=== PATIENT | male | born 1955 | race Caucasian/White ===

== ENCOUNTER → 2019-01-25 | Outpatient (CLI) | payer MEDICARE, BC | LOC: LAB SHORT 11:00 → LAB 11:00 | DX: J44.9 Chronic obstructive pulmonary disease, unspecified (principal) | CPT/HCPCS: 87070; 87205 ==

== ENCOUNTER 2019-06-18 05:09 | Inpatient (IN) | payer MEDICARE, BC ==
[~2019-06-18] VITALS: Ht 185.4 cm; Wt 108.9 kg
[2019-06-18] MEDS ORDERED: Duoneb 2.5-0.5 M3 ML NEB (05:23)
[2019-06-18] MEDS ORDERED: OMEP20ER PO (05:24)
[2019-06-18] MEDS ORDERED: Budesonide0.5 MG/2 M INH (05:24)
[2019-06-18] MEDS ORDERED: COMBIVENT RESPIM4 GM INH (05:24)
[2019-06-18] MEDS ORDERED: CENTRUM SILVER1 EAC2 PO (05:25)
[2019-06-18] MEDS ORDERED: Elemental Calc600 MG PO (05:28)
[2019-06-18] MEDS ORDERED: MAGNESIUM GLU27.5 M1 PO (05:29)
[2019-06-18] MEDS ORDERED: VITAMIN D32000 UNI3 PO (05:30)
[2019-06-18] MEDS ORDERED: B Complex-Foli1 EACH PO (05:31)
[2019-06-18 05:50] LABS: BASOPHILS ABSOLUTE AUTO 0.02 K/mm3 (0.00-0.23); BASOPHILS PERCENT AUTO 0 % (0-2); EOSINOPHILS ABSOLUTE AUTO 0.07 K/mm3 (0.00-0.68); EOSINOPHILS PERCENT AUTO 1 % (0-6); Hematocrit 36.9 % (37.0-53.0); Hemoglobin 9.8 g/dL (13.5-17.5); IMMATURE GRAN ABSOLUTE AUTO 0.02 K/mm3 (0.00-0.10); IMMATURE GRAN PERCENT AUTO 0 % (0-1); LYMPHOCYTES ABSOLUTE AUTO 0.98 K/mm3 (0.84-5.20); LYMPHOCYTES PERCENT AUTO 11 % (21-46); MONOCYTES ABSOLUTE AUTO 0.76 K/mm3 (0.16-1.47); MONOCYTES PERCENT AUTO 9 % (4-13); Mean Corpuscular HGB 15.7 pg (26.0-34.0); Mean Corpuscular HGB Conc 26.6 g/dL (31.5-36.5); Mean Corpuscular Volume 59 fL (80-100); Mean Platelet Volume 9.1 fL (9.1-12.4); NEUTROPHILS ABSOLUTE AUTO 6.93 K/mm3 (1.96-9.15); NEUTROPHILS PERCENT AUTO 79 % (41-73); Platelet Count 522 K/mm3 (150-400); RDW Coefficient Variation 21.6 % (11.7-14.2); RDW Standard Deviation 42.4 fL (35.1-46.3); Red Blood Cell Count 6.25 M/mm3 (4.30-5.90); White Blood Cell Count 8.78 K/mm3 (4.00-11.30)
[2019-06-18 06:13] LABS: Alanine Aminotransfer (ALT/SGP 18 U/L (12-78); Albumin, Blood 3.9 g/dL (3.4-5.0); Albumin/Globulin Ratio 1.2 (0.8-1.8); Alk Phos 82 U/L (50-136); Anion Gap 7 mmol/L (6-16); Aspartate Aminotrans (AST/SGOT 16 U/L (12-37); Bilirubin, Total 0.5 mg/dL (0.1-1.0); Blood Urea Nitrogen 14 mg/dL (8-24); Bun/Creatinine Ratio 18.2 (12.0-20.0); CO2, Blood 26 mmol/L (21-32); Calcium, Blood 9.3 mg/dL (8.5-10.1); Chloride, Blood 102 mmol/L (98-108); Creatinine, Blood 0.77 mg/dL (0.60-1.20); Globulin, Blood 3.3 g/dL (2.2-4.0); Glomerular Filtration Rate >60 (60-); Glucose, Blood 103 mg/dL (70-99); Potassium, Blood 3.8 mmol/L (3.5-5.5); Sodium, Blood 135 mmol/L (136-145); Total Protein, Blood 7.2 g/dL (6.4-8.2); Troponin I <0.015 ng/mL (0.000-0.040)
--- NOTE | 2019-06-18 10:56 | NUR ---
DR JAY IN TO SEE PT.
--- NOTE | 2019-06-18 11:29 | NUR ---
PT TO OR
--- NOTE | 2019-06-18 12:55 | NUR ---
06/18/19 1255 Jose R Ferreira MAN CATH PLACED PER YELENA DAVIES
--- NOTE | 2019-06-18 14:55 | NUR ---
turned over care to willy bo
--- NOTE | 2019-06-18 15:53 | NUR ---
PT ARRIVED BACK TO THE ROOM AT APPROXIMATELY 1530. PT IS ALERT AND ORIENTED. HE DENIES PAIN AND NAUSEA. HE DOES REPORT SOME DIFFICULTY TAKING A DEEP BREATH. RR IS EVEN AND UNLABORED O2 SATURATION IS >98%. LUNG SOUNDS CLEAR BUT DIM IN THE BASES. EPIDURAL WAS STOPPED AND DR. SCHWARTZ NOTIFIED OF DIFFICULTY BREATHING AND LACK OF SENSATION FROM NIPPLE LINE TO HIS FEET. DR. SCHWARTZ REPORTED HE EXPECTED THIS R/T EPIDURAL PLACEMENT AND ALSO STATED THAT PT HAD A BOLUS OF MEDICATION BEFORE LEAVING THE OR. DR. SCHWARTZ REQUESTED THAT EPIDURAL BE TURNED OFF AT THIS TIME, UNTIL DIFFICULTY BREATHING SUBSIDES. EPIDURAL SITE LOOKS GOOD, DRESSING IS IN PLACE. PT DENIES PAIN AND REPORTS FEELING WELL AFTER SURGERY. BOWEL SOUNDS ARE HYPO ACTIVE. PT MOVES UPPER EXTREMITIES WELL. PT IS UNALBE TO MOVE BLE AT THIS TIME. WILL CONTINUE TO MONITOR.
--- NOTE | 2019-06-18 16:58 | NUR ---
PT IS TREMULOUS AT THIS TIME. HE APPEARS ANXIOUS. PT WAS EDUCATED THAT SOMETIMES ANESTHESIA CAN RESULT IN SHAKING. PT WAS PROVIDED WITH A WARM BLANKET. LIGHTS DIMMED. EDUCATED TO USE CLEANSING BREATHS. MUSIC CHANNEL TURNED ON. PT EDUCATED TO FOCUS ON RELAXING THOUGHTS AND REASSURED THAT HE IS DOING WELL. VSS. WILL CONTINUE TO MONITOR.
--- NOTE | 2019-06-18 17:01 | NUR ---
BREATHING PT REPORTS THAT HIS BREATHING HAS IMPROVED AFTER HAVING A BREATHING TREATMENT. HE ALSO REPORTS HAVING INCREASED DISCOMFORT IN HIS ABD. EPIDURAL WAS STARTED AT THIS TIME SINCE PT IS HAVING DISCOMFORT AND BREATHING HAS IMPROVED.
--- NOTE | 2019-06-18 18:20 | NUR ---
SHIFT SUMMARY PT HAD A GHISLAINE-COLECTOMY WITH DR. GARZA TODAY. HE IS DOING WELL POST-OP. VSS. EPIDURAL SITE IS C/D/I. PT'S SENSATION IS DECREASED FROM T7 TO HIS FEET. HE IS ABLE TO SLIGHTLY MOVE HIS FEET AT THIS TIME. DR. SCHWARTZ IS AWARE OF PT'S LEVEL OF DECREASED SENSATION. PT IS TOLERATING ICE CHIPS AT THIS TIME. VSS. WILL MONITOR UNTIL REPORT TO ONCOMING RN.
--- NOTE | 2019-06-18 20:00 | NUR ---
WITH EPIDURAL CHECKS NOTED PT WITH DECREASED SENSATION BEGINNING DIRECTLY BELOW NIPPLE LINE ENTIRE ABD EXTENDING DOWN LEGS TO FEET.PT ABLE TO LOO. CIRC CKS INTACT.
--- NOTE | 2019-06-18 21:00 | NUR ---
PT REPORTS IMPROVEMENT IN SENSATION TO LEGS. CONT DECREASED, BUT LESS. PT ABLE TO REPOSTIION SELF FOR SITE CKS.
--- NOTE | 2019-06-19 00:56 | NUR ---
PT WITH DECREASED SENSATION APPROX 2 INCHES BELOW NIPPLE LINE. CONTINUES TO MID THIGH THEN STARTS INCREASING SENSATION TO CLOSE NORMAL FURTHER DOWN LEGS TO FEET.DORSI AND PLANTAR FLEX WITHOUT DIFF. MAED. REPOSITIONS SELF IN BED. MAN DRAINING DK DIMAS. MED WITH ZOFRAN FOR C/O MILD NAUSEA. HAS HAD LOOSE SOFT BM TONIGHT.
--- NOTE | 2019-06-19 03:24 | NUR ---
EPIDURAL CHECKS ARE UNCHANGED.
[2019-06-19 03:37] LABS: BASOPHILS ABSOLUTE AUTO 0.02 K/mm3 (0.00-0.23); BASOPHILS PERCENT AUTO 0 % (0-2); EOSINOPHILS PERCENT AUTO 0 % (0-6); Hematocrit 28.4 % (37.0-53.0); Hemoglobin 7.8 g/dL (13.5-17.5); IMMATURE GRAN ABSOLUTE AUTO 0.07 K/mm3 (0.00-0.10); IMMATURE GRAN PERCENT AUTO 0 % (0-1); LYMPHOCYTES ABSOLUTE AUTO 0.64 K/mm3 (0.84-5.20); LYMPHOCYTES PERCENT AUTO 4 % (21-46); MONOCYTES ABSOLUTE AUTO 0.53 K/mm3 (0.16-1.47); MONOCYTES PERCENT AUTO 3 % (4-13); Mean Corpuscular HGB 16.2 pg (26.0-34.0); Mean Corpuscular HGB Conc 27.5 g/dL (31.5-36.5); Mean Corpuscular Volume 59 fL (80-100); Mean Platelet Volume 8.8 fL (9.1-12.4); NEUTROPHILS ABSOLUTE AUTO 15.87 K/mm3 (1.96-9.15); NEUTROPHILS PERCENT AUTO 93 % (41-73); Platelet Count 383 K/mm3 (150-400); RDW Coefficient Variation 21.2 % (11.7-14.2); RDW Standard Deviation 42.9 fL (35.1-46.3); Red Blood Cell Count 4.81 M/mm3 (4.30-5.90); White Blood Cell Count 17.13 K/mm3 (4.00-11.30)
[2019-06-19 03:59] LABS: Anion Gap 6 mmol/L (6-16); Blood Urea Nitrogen 11 mg/dL (8-24); Bun/Creatinine Ratio 13.1 (12.0-20.0); CO2, Blood 24 mmol/L (21-32); Chloride, Blood 107 mmol/L (98-108); Creatinine, Blood 0.84 mg/dL (0.60-1.20); Glomerular Filtration Rate >60 (60-); Glucose, Blood 113 mg/dL (70-99); Potassium, Blood 3.4 mmol/L (3.5-5.5); Sodium, Blood 137 mmol/L (136-145)
--- NOTE | 2019-06-19 04:59 | NUR ---
SUMMARY PT WITH NO ACUTE CHANGES.MED X 1 FOR NAUSEA.TOLERATING SIPS CLR LIQ.VERB ADEQUATE PAIN CONTROL WITH EPIDURAL.REPOSITIONING SELF FOR COMFORT AND FOR EPIDURAL CHECKS.
--- NOTE | 2019-06-19 18:05 | NUR ---
SUMMARY: PT IS POD1 R COLECTOMY. VSS, A/O. SURGICAL SITE WNL. PT RATES PAIN 1-2/10 WITH EPIDURAL, EPIDURAL CHECKS HAVE BEEN UNCHANGING AND WNL. CHECKS ARE NOW Q4 HR SINCE 1400. PT HAD 2 BMS, ABLE TO AMBULATE TO COMMODE AND SIT UP IN CHAIR. SENSATION IS ABOUT 2 INCHES BELOW NIPPLE LINE TO MID-THIGH, PT MOVING LEGS WELL. ADVANCED TO FULL LIQ DIET AND ABLE TO TOLERATE. NO SAFETY CONCERNS AT THIS TIME. WILL PASS REPORT TO NOC RN
[2019-06-20 03:27] LABS: BASOPHILS ABSOLUTE AUTO 0.03 K/mm3 (0.00-0.23); BASOPHILS PERCENT AUTO 0 % (0-2); EOSINOPHILS ABSOLUTE AUTO 0.29 K/mm3 (0.00-0.68); EOSINOPHILS PERCENT AUTO 3 % (0-6); Hematocrit 26.5 % (37.0-53.0); Hemoglobin 7.2 g/dL (13.5-17.5); IMMATURE GRAN ABSOLUTE AUTO 0.03 K/mm3 (0.00-0.10); IMMATURE GRAN PERCENT AUTO 0 % (0-1); LYMPHOCYTES ABSOLUTE AUTO 0.84 K/mm3 (0.84-5.20); LYMPHOCYTES PERCENT AUTO 8 % (21-46); MONOCYTES ABSOLUTE AUTO 0.43 K/mm3 (0.16-1.47); MONOCYTES PERCENT AUTO 4 % (4-13); Mean Corpuscular HGB 16.1 pg (26.0-34.0); Mean Corpuscular HGB Conc 27.2 g/dL (31.5-36.5); Mean Corpuscular Volume 59 fL (80-100); Mean Platelet Volume 8.7 fL (9.1-12.4); NEUTROPHILS ABSOLUTE AUTO 8.71 K/mm3 (1.96-9.15); NEUTROPHILS PERCENT AUTO 84 % (41-73); Platelet Count 345 K/mm3 (150-400); RDW Coefficient Variation 21.2 % (11.7-14.2); RDW Standard Deviation 43.9 fL (35.1-46.3); Red Blood Cell Count 4.47 M/mm3 (4.30-5.90); White Blood Cell Count 10.33 K/mm3 (4.00-11.30)
[2019-06-20 03:43] LABS: Anion Gap 7 mmol/L (6-16); Blood Urea Nitrogen 8 mg/dL (8-24); Bun/Creatinine Ratio 11.3 (12.0-20.0); CO2, Blood 24 mmol/L (21-32); Calcium, Blood 7.9 mg/dL (8.5-10.1); Chloride, Blood 109 mmol/L (98-108); Creatinine, Blood 0.71 mg/dL (0.60-1.20); Glomerular Filtration Rate >60 (60-); Glucose, Blood 97 mg/dL (70-99); Magnesium, Blood 1.8 mg/dL (1.6-2.4); Phosphorus, Blood 2.4 mg/dL (2.5-4.9); Potassium, Blood 3.6 mmol/L (3.5-5.5); Sodium, Blood 140 mmol/L (136-145)
--- NOTE | 2019-06-20 08:13 | NUR ---
SUMMARY PT WITH MINIMAL C/O DISCOMFORT TONIGHT. TOLERATING PO FLUIDS. URINE GETTING KITCHEN RUNNER IN COLOR PER MAN.REPOSTIIONING SELF.
--- NOTE | 2019-06-20 09:04 | NUR ---
DISCUSSED PT'S STATUS WITH DR JAY INCLUDING I/O AND LABWORK. REPORTS IVF TO TKO AND TO GIVE LOVENOX TODAY AND THEN D/C.
--- NOTE | 2019-06-20 17:51 | NUR ---
SHIFT SUMMARY PT EATING AND DRINKING, HAD BM TODAY. PT HAS EPIDURAL IN PLACE, MAN IN PLACE. PT BEEN ASSISTED WITH ADL'S PRN. PT BEEN UP IN ROOM WITH SBA. PT BEEN UP TO CHAIR.
--- NOTE | 2019-06-21 06:22 | NUR ---
SHIFT SUMMARY AOX4. VSS. DENIES N/V. REPORTS MILD PAIN 1-2/10 IN ABD, HAS EPIDURAL IN LOWER SPINE/BACK, PLANNED TO BE REMOVED TODAY. REPORTS MILD DYSPNEA, STATES WORSE W/ACTIVITY & HE'S ALWAYS HAD PROBLEMS W/HIS BREATHING. E/U RESPIRATIONS, SPO2 >90% ON RA. LESLEY WOUND VAC DRESSING LOCATED MID ABD, SCANT AMOUNT DRY SANGUINEOUS DRAINAGE ON BANDAGE OTHERWISE C/D/I. MAN IS PATENT & DRAINING CLEAR YELLOW URINE, PT HAD 2 BM THIS SHIFT. TOLERATING FULL LIQUID DIET. CALL LIGHT IN REACH.
--- NOTE | 2019-06-21 09:16 | NUR ---
EPIDURAL STOPPED AT THIS TIME PER ANESTHESIA ORDERS.
[2019-06-21] MEDS ORDERED: HYDR1TAB94 PO (10:35)
--- NOTE | 2019-06-21 13:55 | NUR ---
EPIDURAL CATHETER REMOVED BY CELESTE HOPSON FBP. CATHETER TIP INTACT. NO BLEEDING NOTED AT INSERTION SITE. PT TOLERATED WELL.
--- NOTE | 2019-06-21 14:46 | NUR ---
DISCHARGE PT EDUCATED ON AND RECEIVED PRINTED DC INSTRUCTIONS AND VERBALIZED AN UNDERSTANDING. PT REPORTS PAIN MANAGED WITH 1 NORCO. NORCO HARD RX GIVEN TO PT. PT INDEP IN ROOM, SHOWERED, AND SOFIYA REG DIET. VOIDING SPONTANEOUSLY POST MAN REMOVAL. IV DC'D. ADHESIVE SURGICAL DRESSING PLACED OVER KUNAL. PT GATHERED ALL PERSONAL BELONGINGS AND PT ESCORTED OUT VIA W/C. TO PICK PT UP AND TAKE HOME.
== END 2019-06-21 15:04 | disposition home or self-care (01) | DRG 330 ==
LOC: ER 05:09 → SURS 07:16
PROVIDERS: Emergency Medicine; ADMIT Surgery
PROC: 0DTF0ZZ Resection of Right Large Intestine, Open Approach (ICD-10-PCS; principal; 2019-06-18 10:00)
DX: C18.0 Malignant neoplasm of cecum (principal); C77.2 Secondary and unspecified malignant neoplasm of intra-abdominal lymph nodes; R18.8 Other ascites; J44.9 Chronic obstructive pulmonary disease, unspecified; K21.9 Gastro-esophageal reflux disease without esophagitis
CPT/HCPCS: 36415; 74177; 80048; 80053; 83690; 83735; 84100; 84484; 85025; 88309; 93005; 93010; 94640; 94762; 96361; 96365-59; 99285-25; A9270-GY; J1100; J1650; J1885; J2250; J2405; J2543; J2704; J3010; J3480; J7030; J7120; Q9967

== ENCOUNTER 2019-07-15 07:55 | Day surgery (SDC) | payer MEDICARE, BC ==
[~2019-07-15] VITALS: Ht 188 cm; Wt 103.9 kg
[~2019-07-15 07:55] MED LIST: B Complex-Foli1 EACH PO; Budesonide0.5 MG/2 M INH; CENTRUM SILVER1 EAC2 PO; COMBIVENT RESPIM4 GM INH; Duoneb 2.5-0.5 M3 ML NEB; Elemental Calc600 MG PO; HYDR1TAB94 PO; MAGNESIUM GLU27.5 M1 PO; OMEP20ER PO; VITAMIN D32000 UNI3 PO
--- NOTE | 2019-07-15 08:33 | NUR ---
PT ADMITTED TO [facility]. AGREES WITH PLANNED SURGERY. LUNG SOUNDS CLEAR.
--- NOTE | 2019-07-15 08:41 | NUR ---
LUNG SOUNDS CLEAR.
--- NOTE | 2019-07-15 08:50 | NUR ---
REPORT TO CHLOE HARVEY RN.
--- NOTE | 2019-07-15 11:22 | NUR ---
Patient up to Ambulate independently. Gait steady. Discharge instructions reviewed with patient. Patient verbalizes understanding. Copy given to patient to take home. Patient States Post-Procedure ride home has been arranged. Discharged via wheelchair to private car for ride home.
== END 2019-07-15 22:38 | disposition home or self-care (01) ==
LOC: ORSCMMR 07:55 → ORD 09:15 → ORSCMMR 09:15
PROVIDERS: Surgery
PROC: B5161ZA Fluoroscopy of Right Subclavian Vein using Low Osmolar Contrast, Guidance (ICD-10-PCS; principal; 2019-07-15 08:45)
PROC: 05H533Z Insertion of Infusion Device into Right Subclavian Vein, Percutaneous Approach (ICD-10-PCS; principal; 2019-07-15 08:45)
DX: C18.0 Malignant neoplasm of cecum (principal); J44.9 Chronic obstructive pulmonary disease, unspecified; K21.9 Gastro-esophageal reflux disease without esophagitis; Z79.899 Other long term (current) drug therapy
CPT/HCPCS: 77001; C1788; J0690; J1100; J1642; J2250; J2405; J2704; J3010; J7120

== ENCOUNTER → 2023-01-26 | Outpatient (CLI) | payer MEDICARE, BC ==
[2023-01-26 11:11] LABS: BASOPHILS ABSOLUTE AUTO 0.03 K/mm3 (0.00-0.23); BASOPHILS PERCENT AUTO 1 % (0-2); EOSINOPHILS ABSOLUTE AUTO 0.23 K/mm3 (0.00-0.68); EOSINOPHILS PERCENT AUTO 4 % (0-6); Hematocrit 46.4 % (37.0-53.0); Hemoglobin 15.9 g/dL (13.5-17.5); IMMATURE GRAN ABSOLUTE AUTO 0.01 K/mm3 (0.00-0.10); IMMATURE GRAN PERCENT AUTO 0 % (0-1); LYMPHOCYTES ABSOLUTE AUTO 1.26 K/mm3 (0.84-5.20); LYMPHOCYTES PERCENT AUTO 21 % (21-46); MONOCYTES ABSOLUTE AUTO 0.36 K/mm3 (0.16-1.47); MONOCYTES PERCENT AUTO 6 % (4-13); Mean Corpuscular HGB 28.9 pg (26.0-34.0); Mean Corpuscular HGB Conc 34.3 g/dL (31.5-36.5); Mean Corpuscular Volume 84 fL (80-100); Mean Platelet Volume 9.3 fL (9.1-12.4); NEUTROPHILS ABSOLUTE AUTO 4.09 K/mm3 (1.96-9.15); NEUTROPHILS PERCENT AUTO 68 % (41-73); Platelet Count 199 K/mm3 (150-400); RDW Coefficient Variation 13.2 % (11.7-14.2); RDW Standard Deviation 40.6 fL (35.1-46.3); Red Blood Cell Count 5.51 M/mm3 (4.30-5.90); White Blood Cell Count 5.98 K/mm3 (4.00-11.30)
[2023-01-26 11:37] LABS: Albumin, Blood 4.3 g/dL (3.4-5.0); Albumin/Globulin Ratio 1.5 (0.8-1.8); Bilirubin, Total 0.5 mg/dL (0.1-1.0); Bun/Creatinine Ratio 10.1 (12.0-20.0); Calcium, Blood 8.9 mg/dL (8.5-10.1); Creatinine, Blood 0.79 mg/dL (0.60-1.20); Globulin, Blood 2.9 g/dL (2.2-4.0); Potassium, Blood 3.9 mmol/L (3.5-5.5); Total Protein, Blood 7.2 g/dL (6.4-8.2)
== END ==
LOC: LAB 10:30 → LAB SHORT 10:30
PROVIDERS: Internal Medicine Hematology & Oncology
DX: C18.0 Malignant neoplasm of cecum (principal)
CPT/HCPCS: 80053; 85025

== ENCOUNTER 2024-05-20 06:04 | Day surgery (SDC) | payer MEDICARE, BC ==
[~2024-05-20] VITALS: Ht 185.4 cm; Wt 98.9 kg
[2024-05-20] VITALS (12 sets, daily range): BP systolic 137–160; BP diastolic 80–94
[~2024-05-20 06:04] MED LIST changes: +Dexamethasone Sod Phos 10 MG/ML 1ML VIAL ONE; +FentaNYL Citrate 50 MCG/ML 5 ML Injection ONE; +IPRAT-ALBUT 0.5-3 ML INH; +Ketorolac Tromethamine 30mg Vial ONE; +MULTI-VITAMIN1 EAC2 PO; +NYSTATIN100000 U13 PO; +Ondansetron HCl 2 MG / ML 2ML Vial ONE; +Rocuronium Bromide 10 MG/ML 5ML Injection IV ONE; +Sugammadex Sodium 200 MG/2ML SDV (100 MG/ML) ONE; +TAMS.4ER PO; +propofoL 20 ML IV ONE
[2024-05-20] MEDS ORDERED: Lactated Ringer's 1,000 ML IV SCH (06:20)
[2024-05-20] MEDS ORDERED: CeFAZolin Sodium 2,000 MG in NS 100 ML IV SCH (06:20)
[2024-05-20] MEDS ORDERED: CeFAZolin Sodium 2,000 MG VIAL ONE (06:39)
--- NOTE | 2024-05-20 06:50 | NUR ---
Ambulatory in Day Surgery History, Chart, Medications and Allergies reviewed before start of procedure. Pre-Op teaching done. Pt verbalizes understanding. Patient States Post-Procedure ride home has been arranged.
[2024-05-20] MEDS ORDERED: Bupivacaine 0.5% HCl 5 MG/ML 30MLVIAL ONE (06:59)
[2024-05-20] MEDS ORDERED: Rocuronium Bromide 10 MG/ML 5ML Injection IV ONE (11:19)
[2024-05-20] MEDS ORDERED: OxyCODONE 5 mg/Acetamin 325 mg TABLET PO PRN (12:10)
--- NOTE | 2024-05-20 12:52 | NUR ---
PT'S BROUGHT BACK TO BEDSIDE. PT VERY DROWSY, BUT ROUSES EASILY TO VOICE. PT DENIES PAIN/NAUSEA, VSS, ON RA. NO VISIBLE SIGNS OF DISTRESS NOTED.
--- NOTE | 2024-05-20 12:57 | NUR ---
PT SITTING UP MORE IN CART, LOOKING AROUND & CONVERSING W/ HIS & THIS RN. PT'S O2 SAT CURRENTLY 95% ON RA, VSS. PT CONTINUES TO DENY PAIN/NAUSEA. PT STILL DROWSY, BUT OPENS EYES SPONTANEOUSLY AND LOOKS AROUND ROOM AND TALKS W/ . NO VISIBLE SIGNS OF DISTRESS NOTED.
--- NOTE | 2024-05-20 14:01 | NUR ---
1335: PT RESTING COMFORTABLY IN CART W/O COMPLAINT. PT CONTINUES TO DENY PAIN/NAUSEA, VSS, ON RA. PT DEEP BREATHING & COUGHING TO CLEAR AIRWAY. PT'S O2 SAT REMAINS 94-99% ON RA. D/C INSTRUCTIONS GIVEN TO PT & PT'S , BOTH VERBALIZED UNDERSTANDING. PT DRESSED W/ HELP FROM . PT DID HAVE BOUT OF EMESIS AFTER MOVING AROUND. PT STATES IMMEDIATE RELIEF AFTER EMESIS, NO MEDICATION NEEDED. PT HAS ALL BELONGINGS W/ HIM, INCLUDING D/C PACKET. HARD COPY OF PAIN RX GIVEN TO PT'S , AKILAH. PT PLACED GLASSES ON SELF. 1355: PT'S TAKES PT'S CANE & BAG OUT TO CAR. PT WHEELED TO MAIN ENTRANCE WHERE HE WILL BE DRIVEN HOME BY IN PRIVATE VEHICLE. STEADY GAIT NOTED UPON TRANSFER FROM TO VEHICLE. PT A&OX4, NO VISIBLE SIGNS OF DISTRESS NOTED.
== END 2024-05-20 23:00 | disposition home or self-care (01) ==
LOC: ORSCMMR 06:04 → ORD 07:30 → ORSCMMR 23:00
PROVIDERS: Surgery
PROC: 0YUE4JZ Supplement Bilateral Femoral Region with Synthetic Substitute, Percutaneous Endoscopic Approach (ICD-10-PCS; principal; 2024-05-20 07:30)
PROC: 0YUA4JZ Supplement Bilateral Inguinal Region with Synthetic Substitute, Percutaneous Endoscopic Approach (ICD-10-PCS; principal; 2024-05-20 07:30)
PROC: 8E0W4CZ Robotic Assisted Procedure of Trunk Region, Percutaneous Endoscopic Approach (ICD-10-PCS; principal; 2024-05-20 07:30)
PROC: 3E0T3BZ Introduction of Anesthetic Agent into Peripheral Nerves and Plexi, Percutaneous Approach (ICD-10-PCS; principal; 2024-05-20 07:30)
DX: K40.00 Bilateral inguinal hernia, with obstruction, without gangrene, not specified as recurrent (principal); K41.00 Bilateral femoral hernia, with obstruction, without gangrene, not specified as recurrent; D17.6 Benign lipomatous neoplasm of spermatic cord; K66.0 Peritoneal adhesions (postprocedural) (postinfection); I10 Essential (primary) hypertension; J44.89 Other specified chronic obstructive pulmonary disease; K21.9 Gastro-esophageal reflux disease without esophagitis; N40.0 Benign prostatic hyperplasia without lower urinary tract symptoms; Z79.899 Other long term (current) drug therapy
CPT/HCPCS: 88304; C1781; J0690; J1100; J1885; J2405; J2704; J3010; J7120